=== PATIENT | female | born 1980 | race Caucasian/White ===

== ENCOUNTER → 2018-07-03 09:21 | Outpatient (CLI) | payer BC, SELFPAY ==
[2018-07-03 09:33] LABS: Adenovirus,PCR Not Detected (NotDetected); Bordetella Pertussis Not Detected (NotDetected); Chlamydophila Pneumoniae, PCR Not Detected (NotDetected); Coronavirus 229E Not Detected (NotDetected); Coronavirus NL63 Not Detected (NotDetected); Coronavirus OC43 Not Detected (NotDetected); Coronovirus HKU1,PCR Not Detected (NotDetected); Human Metapneumovirus Not Detected (NotDetected); Influenza A, PCR Not Detected (NotDetected); Influenza AH1, 2009 Not Detected (NotDetected); Influenza AH1, PCR Not Detected (NotDetected); Influenza AH3,PCR Not Detected (NotDetected); Influenza B, PCR Not Detected (NotDetected); Mycoplasma Pneumoniae, PCR Not Detected (NotDetected); Parainfluenza 1, PCR Not Detected (NotDetected); Parainfluenza 2, PCR Not Detected (NotDetected); Parainfluenza 3, PCR Not Detected (NotDetected); Parainfluenza 4, PCR Not Detected (NotDetected); Respiratory Syncytial Virus Not Detected (NotDetected); Rhinovirus/Enterovirus Not Detected (NotDetected)
== END ==
PROVIDERS: PCP Physician Assistant; Visit Provider Physician Assistant
DX: R69 Illness, unspecified (principal); R21 Rash and other nonspecific skin eruption
CPT/HCPCS: 87486; 87581; 87633; 87798

== ENCOUNTER 2023-07-20 20:57 | Emergency (ER) | payer BC, SELFPAY ==
[2023-07-20 20:58] VITALS: BP 127/75; PULSE 72; RESP 16; TEMP 36.6; O2SAT 98; BMI 26.4
--- NOTE | 2023-07-20 21:19 | US_ITS ---
PROCEDURE INFORMATION: Exam: US , Transvaginal Exam date and time: 07/20/2023 10:19 PM Age: 42 years old Clinical indication: Lmp or gestational age (in weeks): 05/24/2023; Other: Bleeding; ; Additional info: unknown location, 8 wks, spotting LABS AND CLINICAL REPORTS: Last menstrual period start date: 05/24/2023 Gestational age (Established): 8 w 1 d Estimated due date (Established): 02/28/2024 TECHNIQUE: Imaging protocol: Real-time transvaginal obstetrical ultrasound of the maternal pelvis with image documentation. Transvaginal imaging was used for better evaluation of the fetus, adnexa, and/or cervix. COMPARISON: No relevant prior studies available. FINDINGS: Gestation: Intrauterine sac-like collection containing a linear echogenic focus with a mean sac diameter of 1.44 cm. No definitively visualized new sac or pole. Small hypoechoic focus adjacent to the intrauterine saclike collection. BIOMETRY: Gestational age (AUA): 6 weeks 2 days Estimated due date (AUA): 03/12/2024 MATERNAL: Uterus: Retroverted. Right ovary/adnexa: Unremarkable ovary. Normal vascular flow. No adnexal mass. Left ovary/adnexa: Unremarkable ovary. Normal vascular flow. No adnexal mass. IMPRESSION: Indeterminate intrauterine sac-like collection containing a linear echogenic focus without a definitively identified yolk sac or pole. Small adjacent hypoechoic focus possibly representing hemorrhage/clot. Differential diagnosis includes early intrauterine , failed first trimester , and non-visualized ectopic . No abnormal adnexal mass is identified. If the patient is stable, recommend close clinical follow-up with serial imaging and B-hCG assessment.
--- NOTE | 2023-07-20 21:23 | PC.NURSE ---
notified radiology of transvaginal ultrasound order
--- NOTE | 2023-07-20 21:28 | ED_ITS ---
Discharge Plan Disposition Patient Disposition: Home, Self-Care Prescriptions Prescriptions: No Action Linzess 145 mcg capsule 145 mcg PO DAILY amoxicillin 500 mg tablet 500 mg PO TID Qty: 30 0RF pseudoephedrine HCl 120 mg tablet extended release 120 mg PO Q12H Qty: 20 1RF fluconazole [Diflucan] 150 mg tablet 150 mg PO Q3D 0 Days Qty: 2 0RF Referrals Follow up/Referrals: Amada Garcia DO [Staff Physician] - See instructions Renan López MD [Primary Care Provider] - See instructions Activity Restrictions/Add. Instructions Additional Instructions/Restrictions: Your quantitative beta-hCG was 3594. The transvaginal ultrasound did not demonstrate a definitive intrauterine . There was a gestational sac without any definitive yolk sac or pole. This certainly was not consistent with an 8-week intrauterine possible that you are too early from a date standpoint or that this is a blighted ovum. Working diagnosis is a of unknown location cannot definitively rule out an ectopic and cannot definitively rule in an intrauterine . I advised that you follow-up with your [facility] doctor in 48 hours for repeat ultrasound and quantitative beta-hCG. You may also follow-up with hours if you cannot get in to be seen by high risk team at that time. Lastly please return to the emergency department significant worsening of your symptoms bleeding through more than 1 pad an hour or other concerns. Clinical Impressions Clinical Impression: of unknown anatomic location Discharge ED Provider: Shameka Moore General Adult HPI General Chief complaint: Vaginal Bleeding Stated complaint: 8 weeks with bleeding Time Seen by Provider: 07/20/23 21:07 Mode of Arrival: Ambulatory Source of Information: Patient Limitations: No Limitations Description of Symptoms (Recalled from ER Triage Doc. by RN): Pt is 8 wks and started bleeding approx 1 hour ago. Has not saturated a pad. Pt states she's been trying to conceive for over 2 years so she wants to make sure everything is okay. Pt is A&O*4 is bedside. History of Present Illness HPI narrative: Patient is a A1 who is 8 weeks gestational age by dates presenting today with abdominal cramping and spotting. No significant or heavy bleeding no severe abdominal pain. No history of pelvic inflammatory disease or ectopic pregnancies or smoking. Has not had an ultrasound yet for this as she has followed Dr. Rajput in the [facility] due to her high risk with her age. She did recently have serial quantitative beta-hCG's that were performed on 23 June her hCG was in the 700s 2 days later on the it was just over 1600. She also states that she is O+ has never had to have RhoGAM in the past. No urinary symptoms. Related Data Home Medications Medication Instructions Recorded Confirmed linaclotide 145 mcg capsule 145 mcg PO DAILY 04/02/22 04/22/22 (Linzess) Previous Rx's Medication Instructions Recorded amoxicillin 500 mg tablet 500 mg PO TID #30 tabs 04/22/22 fluconazole 150 mg tablet 150 mg PO Q3D 2 doses #2 tabs 04/22/22 (Diflucan) pseudoephedrine HCl 120 mg 120 mg PO Q12H #20 tabs 04/22/22 tablet,extended release Allergies Allergy/AdvReac Type Severity Reaction Status Date / Time amphetamine [From Adderall] Allergy Intermediate RASH Verified 04/22/22 13:55 dextroamphetamine Allergy Intermediate RASH Verified 04/22/22 13:55 [From Adderall] [facility] Disclaimer: The information contained in this section may have been updated after the patient was seen, as this information can be updated by other users. Medical History AV block Surgical History History of mandibular surgery History of tonsillectomy Family History Father Coronary artery disease Diabetes Mother Diabetes Hypertension Grandmother Hypertension Social History Smoking Status: Never smoker alcohol intake: current substance use type: denies use current occupational status: employed Travel in the last 8 weeks: None household members: spouse and children housing: house marital status: education level: college current occupation: Nurse ROS Obtained: Yes All systems reviewed & no additional complaints except as documented Physical Exam General General appearance: alert and in no apparent distress Respiratory Respiratory exam: Present normal lung sounds bilaterally Cardiovascular Cardiovascular exam: Present regular rate and normal rhythm Abdominal Exam Abdominal exam: Present soft; Absent distention or tenderness Neurological Exam Neurological exam: Present alert and oriented X3 Medical Decision Making Gavino Inquiry Pt receiving controlled substance: No Vital Signs: 07/20/23 20:58 07/20/23 21:30 07/20/23 22:00 Temperature 97.8 F Temperature Source Oral Pulse Rate 75 70 Pulse Rate [Left] 72 Respiratory Rate 16 20 18 Blood Pressure 128/72 119/73 Blood Pressure [Right Arm] 127/75 Blood Pressure Mean 80 90 Blood Pressure Mean [Right Arm] 92 02 Sat by Pulse Oximetry 98 98 97 Oxygen Delivery Method Room Air Room Air Room Air Lab Data Lab results reviewed: Yes I reviewed the patient's lab results. Lab Results 07/20/23 21:25: WBC 8.3, RBC 4.63, Hgb 13.4, Hct 40.7, MCV 87.9, MCH 28.8, MCHC 32.8, RDW 13.6, Plt Count 276, MPV 9.0, Neut % (Auto) 49.8, Lymph % (Auto) 39.0, [place] % (Auto) 7.1, Eos % (Auto) 3.1, Baso % (Auto) 1.0, Neut # (Auto) 4.1, Lymph # (Auto) 3.2, [place] # (Auto) 0.6, Eos # (Auto) 0.3, Baso # (Auto) 0.1, Sodium 137, Potassium 4.1, Chloride 106, Carbon Dioxide 27, Anion Gap 8.1, BUN 11, Creatinine 0.60, Estimated Creat Clear 163, Estimated GFR 110, Est GFR ( Amer) 133, Glucose 97, Calcium 9.2, Total Bilirubin 0.4, AST 32, ALT 24, Alkaline Phosphatase 55, Total Protein 7.2, Albumin 4.6, Globulin 2.6, Albumin/Globulin Ratio 1.8, HCG, Quant 3594 H 07/20/23 21:25 07/20/23 21:25 Orders (Tests/Meds): ORDERS Category Date Time Status POCUS Point of Care (ER Only) Stat Exams 07/20/23 21:08 Completed Beta HCG, Quant [HCG,Quantitative] Stat Lab 07/20/23 21:25 Completed CBC w/Auto Diff [Complete Blood Count Auto Diff] Stat Lab 07/20/23 21:25 Completed CMP [Comprehensive Metabolic Panel] Stat Lab 07/20/23 21:25 Completed UA [Urinalysis and Microscopic] Stat Lab 07/20/23 21:19 Ordered US OB transvaginal Stat Ultrasound 07/20/23 21:19 Taken Medical Decision Narrative: Patient is a A1 8 weeks gestational age who on June 25 had an hCG level that was above discriminatory zone. Concerningly, I was not able to see an intrauterine with transabdominal ultrasound at this point. There was some bowel gas which may have limited my ability to see and is possible that her dates are often that she may be earlier than what was stated. Nonetheless if she is above discriminatory zone and should be able to see an intrauterine . Will get a transvaginal ultrasound in addition to quantitative beta- hCG and other labs and urinalysis. She is O+ do not need to repeat her blood type at this point. She is aware that we are trying to find the location of her and we will go from there. On the differential also is a completed AB versus threatened AB versus ectopic etc. Reassessment 10:59 PM transvaginal ultrasound performed which I personally interpreted also discussed with the radiology receptionist. There is a gestational sac with no definitive pole or yolk sac. Cannot definitively rule in an intrauterine . Gestational sac measures slightly earlier than her suspected dates. Differential still includes pseudo gestational sac and ectopic cannot definitively rule out an ectopic at this point with a quantitative beta-hCG of 3600. However I cannot see yolk sac. I do not suspect this clinically at this point. Also blighted ovum is certainly in the differential at this point and that is what is leading on the differential. I had an extensive discussion about the whole situation with the patient and the patient's . She will follow-up outpatient with her [facility] doctor for repeat quantitative beta-hCG and transvaginal ultrasound in 48 hours. She will return with any significant worsening of her symptoms. She understood the diagnostic uncertainty this was going on right now and working diagnosis of of unknown location. She was discharged in stable condition. Procedures Miscellaneous Procedure Procedure Performed: Limited OB ultrasound Indication: Abdominal pain and bleeding in the setting of home positive test Identified structures: [-Uterus -Left adnexa -Right adnexa -Pouch of Andrew] Findings: Uterus: No definitive IUP Right adnexa: No free fluid Left adnexa: No free fluid Cul de sac: Free fluid absent Impression: No definitive IUP or obvious intra-abdominal free fluid Images were saved to permanent archive The study was technically adequate CPT Transabdominal: 00785-27 This study was performed by me, and I personally interpreted all images/videos. Based on my clinical judgement, these images were adequate and did not necessitate further imaging. Critical Care Critical Care Time Critical Care Time: No
[2023-07-20 21:30] VITALS: BP 128/72; PULSE 75; RESP 20; O2SAT 98
[2023-07-20 21:41] LABS: Chloride 106 mmol/L (98-107); Potassium 4.1 mmoL/L (3.5-5.1); Sodium 137 mmol/L (136-145)
[2023-07-20 21:43] LABS: Basophils # 0.1 K/mm3 (0-0.2); Eosinophils # 0.3 K/mm3 (0.0-0.4); Eosinophils % 3.1 % (0.1-12.0); Hematocrit 40.7 % (37.0-47.0); Hemoglobin 13.4 g/dL (12.2-16.2); Lymphocytes # 3.2 K/mm3 (0.7-4.5); Mean Corpuscular HGB Conc 32.8 g/dL (31.8-35.4); Mean Corpuscular Hemoglobin 28.8 pg (27.0-31.2); Mean Corpuscular Volume 87.9 fl (81-99); Monocytes # 0.6 K/mm3 (0.1-1.0); Monocytes % 7.1 % (1.7-9.3); Neutrophils # 4.1 K/mm3 (1.8-7.8); Neutrophils % 49.8 % (37.0-80.0); Platelet Count 276 K/mm3 (142-424); Red Blood Count 4.63 M/mm3 (4.20-5.40); Red Cell Distribution Width 13.6 % (11.5-17.5); White Blood Count 8.3 K/mm3 (4.8-10.8)
[2023-07-20 21:44] LABS: Alanine Aminotransferase 24 U/L (12-78); Albumin Level 4.6 g/dl (3.5-5.0); Albumin/Globulin Ratio 1.8 (1.1-1.8); Alkaline Phosphatase 55 U/L (38-126); Anion Gap 8.1 mEq/L (5-15); Aspartate Amino Transferase 32 U/L (14-36); Bilirubin,Total 0.4 mg/dl (0.2-1.3); Blood Urea Nitrogen 11 mg/dl (7-17); Carbon Dioxide 27 mmol/L (22.0-30.0); Creatinine Clearance Estimated 163 mL/min (50-200); Estimated Glomerular Filt Rate 110 ml/min (>60); GFR (African American) 133 ML/MIN (>60); Globulin 2.6 g/dL (1.3-3.2); Total Protein,Serum 7.2 g/dl (6.3-8.2)
[2023-07-20 21:45] LABS: Calcium 9.2 mg/dl (8.4-10.2); Glucose 97 mg/dl (74-100)
--- NOTE | 2023-07-20 21:50 | HMH.ITSTN ---
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
[2023-07-20 22:00] VITALS: BP 119/73; PULSE 70; RESP 18; O2SAT 97
[2023-07-20 22:01] LABS: HCG,Quantitative 3594 mIU/ml (0-5.42)
--- NOTE | 2023-07-20 22:26 | PC.NURSE ---
Pt to US with Tech
[2023-07-20 23:04] VITALS: BP 118/73; PULSE 70; RESP 18; TEMP 36.8; O2SAT 97
== END 2023-07-20 23:07 | disposition home or self-care (01) ==
PROVIDERS: Emergency Provider Student in an Organized Health Care Education/Training Program; PCP Family Medicine
DX: O26.851 Spotting complicating pregnancy, first trimester (principal); O26.891 Other specified pregnancy related conditions, first trimester; R10.9 Unspecified abdominal pain; Z3A.08 8 weeks gestation of pregnancy
CPT/HCPCS: 76817; 80053; 84702; 85025; 99285

== ENCOUNTER 2024-07-30 15:39 | Outpatient (CLI) | payer BC, SELFPAY ==
--- NOTE | 2024-07-30 16:00 | MM_ITS ---
PROCEDURE INFORMATION: Exam: MG Bilateral Screening 3D Mammography Exam date and time: 07/30/2024 3:48 PM Age: 43 years old Clinical indication: Screening examination TECHNIQUE: Imaging protocol: Bilateral Screening tomosynthesis and 2D mammography including computer-aided detection (CAD) when performed. COMPARISON: 1. MG MAMMO ADDITIONAL VIEWS RT 03/04/2019 9:19 AM 2. MG Screening-Bilateral Mammography 02/24/2019 10:25 AM FINDINGS: MAMMOGRAPHY: Breast composition: There are scattered areas of fibroglandular density. Mass: None. Architectural distortion: None. Calcifications: No suspicious calcifications. Asymmetric density: None. Skin thickening: None. Axillary adenopathy: None. IMPRESSION: No mammographic evidence of malignancy. Annual screening is recommended unless otherwise clinically indicated. ASSESSMENT: BI-RADS Category 1: Negative.
== END 2024-07-30 23:59 | disposition home or self-care (01) ==
LOC: RAD 15:40
PROVIDERS: PCP Family Medicine; Visit Provider Family Medicine
DX: Z12.31 Encounter for screening mammogram for malignant neoplasm of breast (principal)
CPT/HCPCS: 77063; 77067

== ENCOUNTER 2024-08-20 08:59 | Outpatient (CLI) | payer BC, SELFPAY | END 2024-08-20 23:59 | disposition home or self-care (01) | LOC: LAB.DROPOF 08-23 09:00 | PROVIDERS: PCP Family Medicine; Visit Provider Nurse Practitioner | DX: R35.0 Frequency of micturition (principal); B96.20 Unspecified Escherichia coli [E. coli] as the cause of diseases classified elsewhere | CPT/HCPCS: 87086; 87088; 87186 ==